=== PATIENT | female | born 1985 | race Two or more races ===

== ENCOUNTER 2020-05-09 02:13 | Inpatient (IN) | payer MEDICAID ==
[~2020-05-09] VITALS: Ht 165.1 cm; Wt 90.3 kg
[2020-05-09] MEDS ORDERED: ONDANSETRON HCL 4MG/2ML INJ IV STA (03:02)
[2020-05-09] MEDS ORDERED: FAMOTIDINE 20MG/2ML VIAL IV STA (03:02)
[2020-05-09] MEDS ORDERED: SODIUM CHLORIDE 0.9% 1,000 ML IV ONE (03:15)
[2020-05-09 03:31] LABS: BASOPHILS % 0.4 % (0.0-2.0); EOSINOPHILS % 1.4 % (0.0-5.0); HEMATOCRIT. 42.2 % (36.0-48.0); HEMOGLOBIN. 13.2 g/dL (12.0-16.0); LYMPHOCYTES % 25.8 % (20.0-50.0); MEAN CORPUSCULAR HEMOGLOBIN 26.1 pg (28.0-32.0); MEAN CORPUSCULAR VOLUME 83.4 fL (81.0-99.0); MEAN PLATELET VOLUME 7.8 fl (7.4-10.4); MONOCYTES % 4.9 % (2.0-8.0); NEUTROPHILS % 67.5 % (40.0-76.0); PLATELET 299 x1000/uL (130-400); RED BLOOD CELL COUNT 5.06 mill/uL (4.2-5.4); RED CELL DISTRIBUTION WIDTH 15.6 % (11.6-14.6)
[2020-05-09 03:37] LABS: CHLORIDE 112 mEq/L (98-107)
[2020-05-09] MEDS: KETOROLAC 15MG/ML VIAL IV ONE ×2 (03:39→03:58)
[2020-05-09 03:41] LABS: HCG SCREEN NEGATIVE
[2020-05-09] MEDS: HYDROMORPHONE HCL/PF 2MG/ML CPJ IV PRN ×3 (06:10→18:39)
[2020-05-09] MEDS: ONDANSETRON HCL 4MG/2ML INJ IV PRN ×3 (06:10→20:05)
[2020-05-09] MEDS: CLONIDINE 0.1MG TABLET PO PRN ×2 (06:10→13:37)
[2020-05-09] MEDS ORDERED: KETOROLAC 15MG/ML VIAL IV PRN (09:00)
[2020-05-09] MEDS ORDERED: PREG200C PO (09:04)
[2020-05-09] MEDS ORDERED: QUET200T PO (09:04)
[2020-05-09] MEDS ORDERED: LORA-250 PO (09:04)
[2020-05-09] MEDS: AMLODIPINE 10MG TABLET PO SCH (09:15)
[2020-05-09 10:15] VITALS: BP 157/75
[2020-05-09] MEDS: METOCLOPRAMIDE HCL 10MG/2ML VIAL IV SCH ×3 (11:06→23:21)
[2020-05-09 12:00] VITALS: BP 170/80
[2020-05-09] MEDS ORDERED: HYDRALAZINE HCL 100MG TABLET PO ONE (14:00)
[2020-05-09 14:19] LABS: CLARITY URINE CLOUDY (CLEAR); COLOR URINE YELLOW (YELLOW); KETONES URINE TRACE (NEGATIVE); LEUKOCYTE ESTERASE URINE NEGATIVE (NEGATIVE); NITRITE URINE NEGATIVE (NEGATIVE); OCCULT BLOOD URINE 1+ (NEGATIVE); PH URINE 5.5 (4.5-8.0); PROTEIN URINE 4+ (NEGATIVE); SPECIFIC GRAVITY URINE 1.038 (1.005-1.030)
[2020-05-09] MEDS ORDERED: DIPHENHYDRAMINE 50MG/ML VIAL IV PRN (14:30)
[2020-05-09] MEDS ORDERED: DEXTROSE 50% WATER 50ML SYRINGE IV PRN (14:30)
[2020-05-09] MEDS: HYDRALAZINE HCL 100MG TABLET PO SCH ×2 (14:32→21:35)
[2020-05-09] MEDS ORDERED: DIPHENHYDRAMINE 25MG CAPSULE PO PRN (14:45)
[2020-05-09 14:50] LABS: *AMPHETAMINES SCREEN URINE NEGATIVE (NEGATIVE)
[2020-05-09 14:52] LABS: *BARBITURATES SCREEN URINE NEGATIVE (NEGATIVE); *BENZODIAZEPINES SCREEN URINE NEGATIVE (NEGATIVE); *COCAINE SCREEN URINE NEGATIVE (NEGATIVE); METHADONE URINE SCREEN NEGATIVE (NEGATIVE)
[2020-05-09 14:53] LABS: PHENCYCLIDINE URINE SCREEN NEGATIVE (NEGATIVE)
[2020-05-09 14:55] LABS: OPIATES URINE SCREEN PRESUMTIVE POSITIVE (NEGATIVE)
[2020-05-09 14:56] LABS: CANNABINOID URINE SCREEN PRESUMTIVE POSITIVE (NEGATIVE)
[2020-05-09] MEDS: BLOOD SUGAR DIAGNOSTIC STRIP TEST SCH ×2 (16:59→21:36)
[2020-05-09] MEDS: HYDROCODONE/ACETAMINOPHEN 5/325MG TABLET PO PRN (17:15)
[2020-05-09] MEDS: INSULIN LISPRO 100 UNITS/ML SUBCUT SCH ×2 (17:20→21:00)
[2020-05-09 20:00] VITALS: BP 169/95
[2020-05-09] MEDS ORDERED: FAMOTIDINE 20MG TABLET PO SCH (21:00)
[2020-05-09] MEDS ORDERED: QUETIAPINE FUMARATE 50MG TABLET PO SCH (21:00)
[2020-05-09] MEDS: SODIUM CHLORIDE 0.45% 1,000 ML IV SCH (23:21)
[2020-05-10] VITALS: BP 118/61
[2020-05-10] MEDS: ONDANSETRON HCL 4MG/2ML INJ IV PRN ×3 (01:57→16:36)
[2020-05-10] MEDS: HYDROMORPHONE HCL/PF 2MG/ML CPJ IV PRN ×3 (01:58→16:36)
[2020-05-10 04:00] VITALS: BP 167/90
[2020-05-10] MEDS: METOCLOPRAMIDE HCL 10MG/2ML VIAL IV SCH ×3 (05:04→18:14)
[2020-05-10] MEDS: HYDRALAZINE HCL 100MG TABLET PO SCH ×3 (05:04→14:13)
[2020-05-10] MEDS: DIATR MEGLU/DIATRIZOATE SOLN 30ML PO NR ×2 (05:05→09:33)
[2020-05-10] MEDS: INSULIN LISPRO 100 UNITS/ML SUBCUT SCH ×3 (06:06→18:13)
[2020-05-10] MEDS: BLOOD SUGAR DIAGNOSTIC STRIP TEST SCH ×3 (06:06→17:10)
[2020-05-10 06:30] LABS: BASOPHILS % 0.5 % (0.0-2.0); EOSINOPHILS % 0.3 % (0.0-5.0); HEMATOCRIT. 36.8 % (36.0-48.0); HEMOGLOBIN. 11.9 g/dL (12.0-16.0); LYMPHOCYTES % 21.2 % (20.0-50.0); MEAN CORPUSCULAR HEMOGLOBIN 26.7 pg (28.0-32.0); MEAN CORPUSCULAR VOLUME 82.9 fL (81.0-99.0); MONOCYTES % 4.1 % (2.0-8.0); NEUTROPHILS % 73.9 % (40.0-76.0); PLATELET 278 x1000/uL (130-400); RED BLOOD CELL COUNT 4.44 mill/uL (4.2-5.4); RED CELL DISTRIBUTION WIDTH 15.4 % (11.6-14.6)
[2020-05-10 08:00] VITALS: BP 176/97
[2020-05-10 08:00] LABS: CLARITY URINE CLEAR (CLEAR); COLOR URINE YELLOW (YELLOW); KETONES URINE TRACE (NEGATIVE); LEUKOCYTE ESTERASE URINE NEGATIVE (NEGATIVE); NITRITE URINE NEGATIVE (NEGATIVE); OCCULT BLOOD URINE NEGATIVE (NEGATIVE); PH URINE 5.5 (4.5-8.0); PROTEIN URINE 4+ (NEGATIVE); SPECIFIC GRAVITY URINE 1.022 (1.005-1.030); UROBILINOGEN URINE 0.2 E.U./dL (0.2-1.0)
[2020-05-10] MEDS: AMLODIPINE 10MG TABLET PO SCH (08:08)
[2020-05-10] MEDS: HYDROCODONE/ACETAMINOPHEN 5/325MG TABLET PO PRN (09:54)
[2020-05-10] MEDS ORDERED: PROCHLORPERAZINE 10MG/2ML VIAL IV PRN (10:45)
[2020-05-10 12:00] VITALS: BP 161/92
[2020-05-10] MEDS ORDERED: CLONIDINE 0.1MG TABLET PO SCH (14:00)
[2020-05-10] MEDS ORDERED: LIDOCAINE HCL 1% 20ML VIAL (Pyxis) INJ ONE (15:12)
[2020-05-10 16:00] VITALS: BP 145/88
[2020-05-10] MEDS: SODIUM CHLORIDE 0.45% 1,000 ML IV SCH (16:37)
[2020-05-10 18:19] VITALS: BP 145/88
[2020-05-10] MEDS ORDERED: SENNOSIDES/DOCUSATE SOD 8.6/50MG TABLET PO SCH (21:00)
[2020-05-11] MEDS ORDERED: DOCUSATE SODIUM 250MG CAPSULE PO SCH (09:00)
[2020-05-11] MEDS ORDERED: DOCUSATE SODIUM 100MG CAPSULE PO SCH (09:00)
[2020-05-11] MEDS ORDERED: PANTOPRAZOLE SODIUM 40 MG/VIAL IV SCH (09:00)
== END 2020-05-10 20:20 | disposition home or self-care (01) | DRG 48 ==
LOC: ER 02:13 → 8WST 04:58 → ENRESERV 07:10
PROVIDERS: ADMIT Internal Medicine; ATTEND Internal Medicine
PROC: 02HV33Z Insertion of Infusion Device into Superior Vena Cava, Percutaneous Approach (ICD-10-PCS; principal; 2020-05-10)
PROC: B518ZZA Fluoroscopy of Superior Vena Cava, Guidance (ICD-10-PCS; 2020-05-10)
PROC: B548ZZA Ultrasonography of Superior Vena Cava, Guidance (ICD-10-PCS; 2020-05-10)
DX: E11.43 Type 2 diabetes mellitus with diabetic autonomic (poly)neuropathy (principal); K31.84 Gastroparesis; N17.0 Acute kidney failure with tubular necrosis; E43 Unspecified severe protein-calorie malnutrition; I16.0 Hypertensive urgency; F12.90 Cannabis use, unspecified, uncomplicated; E66.9 Obesity, unspecified; K76.0 Fatty (change of) liver, not elsewhere classified; E11.36 Type 2 diabetes mellitus with diabetic cataract; N92.6 Irregular menstruation, unspecified; E87.8 Other disorders of electrolyte and fluid balance, not elsewhere classified; G89.29 Other chronic pain; Z20.822 Contact with and (suspected) exposure to COVID-19; Z68.33 Body mass index [BMI] 33.0-33.9, adult; Z88.5 Allergy status to narcotic agent; Z90.49 Acquired absence of other specified parts of digestive tract; Z89.022 Acquired absence of left finger(s); Z89.421 Acquired absence of other right toe(s); Z71.3 Dietary counseling and surveillance; Z98.891 History of uterine scar from previous surgery
CPT/HCPCS: 36415; 36573; 74176; 76830; 76856; 80048; 80053; 80305; 81003; 82962; 83036; 84703; 85025; 87426; 99285; C1725; C1893; J1170; J1815; J1885; J2405; J2765; J3490; J7030; Q9963

== ENCOUNTER 2020-05-17 23:57 | Emergency (ER) | payer MEDICAID ==
[~2020-05-17] VITALS: Ht 152.4 cm; Wt 90.0 kg
[~2020-05-17 23:57] MED LIST: LORA-250 PO; PREG200C PO; QUET200T PO
[2020-05-18] MEDS ORDERED: FAMOTIDINE 20MG/2ML VIAL IV STA (00:27)
[2020-05-18] MEDS ORDERED: METOCLOPRAMIDE HCL 10MG/2ML VIAL IV STA (00:27)
[2020-05-18] MEDS ORDERED: KETOROLAC 30MG/ML VIAL IV STA (00:27)
[2020-05-18] MEDS ORDERED: MAGNESIUM/ALUMINUM HYDROXIDE/SIMETHICONE 30ML UDC PO STA (00:27)
[2020-05-18 00:55] LABS: BASOPHILS % 0.4 % (0.0-2.0); EOSINOPHILS % 0.9 % (0.0-5.0); HEMATOCRIT. 35.5 % (36.0-48.0); HEMOGLOBIN. 11.4 g/dL (12.0-16.0); LYMPHOCYTES % 22.7 % (20.0-50.0); MEAN CORPUSCULAR HEMOGLOBIN 26.9 pg (28.0-32.0); MEAN CORPUSCULAR VOLUME 83.4 fL (81.0-99.0); MEAN PLATELET VOLUME 7.8 fl (7.4-10.4); MONOCYTES % 5.3 % (2.0-8.0); NEUTROPHILS % 70.7 % (40.0-76.0); PLATELET 294 x1000/uL (130-400); RED BLOOD CELL COUNT 4.26 mill/uL (4.2-5.4)
[2020-05-18 00:57] LABS: CHLORIDE 114 mEq/L (98-107)
[2020-05-18 01:00] LABS: CLARITY URINE CLOUDY (CLEAR); COLOR URINE YELLOW (YELLOW); KETONES URINE NEGATIVE (NEGATIVE); LEUKOCYTE ESTERASE URINE NEGATIVE (NEGATIVE); NITRITE URINE NEGATIVE (NEGATIVE); OCCULT BLOOD URINE NEGATIVE (NEGATIVE); PH URINE 5.5 (4.5-8.0); PROTEIN URINE 3+ (NEGATIVE); UROBILINOGEN URINE 0.2 E.U./dL (0.2-1.0)
[2020-05-18] MEDS ORDERED: DIPHENHYDRAMINE 25MG CAPSULE PO ONE (01:45)
[2020-05-18] MEDS ORDERED: MORPHINE SULFATE 4 MG/ML CPJ (NOT FOR IM USE) IV ONE (01:45)
[2020-05-18 02:27] VITALS: BP 154/79
== END 2020-05-18 02:41 | disposition home or self-care (01) ==
LOC: ER 23:57
DX: E11.43 Type 2 diabetes mellitus with diabetic autonomic (poly)neuropathy (principal); K31.84 Gastroparesis; I10 Essential (primary) hypertension
CPT/HCPCS: 36415; 80053; 81003; 82010; 82962; 83690; 85025; 93005; 96374; 96375; 99285; J1885; J2270; J2765; J3490; Q0163

== ENCOUNTER 2020-06-30 02:01 | Emergency (ER) | payer MEDICAID ==
[~2020-06-30] VITALS: Ht 167.6 cm; Wt 90.0 kg
[2020-06-30] MEDS ORDERED: ONDANSETRON HCL 4MG/2ML INJ IV STA ×2 (04:26→06:39)
[2020-06-30] MEDS ORDERED: SODIUM CHLORIDE 0.9% 1,000 ML IV ONE (04:30)
[2020-06-30 05:31] LABS: CHLORIDE 112 mEq/L (98-107)
[2020-06-30 05:35] LABS: ETHANOL BLOOD < 10 mg/dL
[2020-06-30 05:37] LABS: BASOPHILS % 0.7 % (0.0-2.0); EOSINOPHILS % 0.4 % (0.0-5.0); HEMATOCRIT. 40.1 % (36.0-48.0); HEMOGLOBIN. 13.1 g/dL (12.0-16.0); MEAN CORPUSCULAR HEMOGLOBIN 26.5 pg (28.0-32.0); MEAN CORPUSCULAR VOLUME 81.2 fL (81.0-99.0); MEAN PLATELET VOLUME 8.3 fl (7.4-10.4); MONOCYTES % 4.1 % (2.0-8.0); NEUTROPHILS % 67.8 % (40.0-76.0); PLATELET 358 x1000/uL (130-400); RED BLOOD CELL COUNT 4.93 mill/uL (4.2-5.4); RED CELL DISTRIBUTION WIDTH 15.5 % (11.6-14.6)
[2020-06-30] MEDS ORDERED: KETOROLAC 30MG/ML VIAL IV STA (06:39)
[2020-06-30 06:41] LABS: CLARITY URINE CLOUDY (CLEAR); COLOR URINE YELLOW (YELLOW); KETONES URINE NEGATIVE (NEGATIVE); LEUKOCYTE ESTERASE URINE NEGATIVE (NEGATIVE); NITRITE URINE NEGATIVE (NEGATIVE); OCCULT BLOOD URINE 1+ (NEGATIVE); PROTEIN URINE 4+ (NEGATIVE); SPECIFIC GRAVITY URINE 1.028 (1.005-1.030); UROBILINOGEN URINE 0.2 E.U./dL (0.2-1.0)
[2020-06-30 06:53] LABS: *BENZODIAZEPINES SCREEN URINE NEGATIVE (NEGATIVE); *COCAINE SCREEN URINE NEGATIVE (NEGATIVE); METHADONE URINE SCREEN NEGATIVE (NEGATIVE); OPIATES URINE SCREEN NEGATIVE (NEGATIVE)
[2020-06-30 06:54] LABS: *AMPHETAMINES SCREEN URINE NEGATIVE (NEGATIVE); *BARBITURATES SCREEN URINE NEGATIVE (NEGATIVE); PHENCYCLIDINE URINE SCREEN NEGATIVE (NEGATIVE)
[2020-06-30 06:55] LABS: CANNABINOID URINE SCREEN PRESUMTIVE POSITIVE (NEGATIVE)
[2020-06-30] MEDS ORDERED: KETOROLAC 15MG/ML VIAL IV ONE (08:00)
[2020-06-30] MEDS ORDERED: CEFTRIAXONE 1 G PREMIX 50 ML IV ONE (08:00)
[2020-06-30] MEDS ORDERED: AMLODIPINE 5MG TABLET PO ONE (08:00)
[2020-06-30] MEDS ORDERED: IBUP-2028 MT (09:26)
[2020-06-30] MEDS ORDERED: NITR-87 MT (09:26)
[2020-06-30 10:40] VITALS: BP 160/80
== END 2020-06-30 10:48 | disposition home or self-care (01) ==
LOC: ER 02:36
DX: N39.0 Urinary tract infection, site not specified (principal); I10 Essential (primary) hypertension; E11.9 Type 2 diabetes mellitus without complications; J44.9 Chronic obstructive pulmonary disease, unspecified; H54.8 Legal blindness, as defined in USA; Z87.19 Personal history of other diseases of the digestive system; Z88.5 Allergy status to narcotic agent; Z79.899 Other long term (current) drug therapy
CPT/HCPCS: 36415; 74176; 80053; 80305; 80320; 81003; 81025; 83690; 85025; 93005; 96361; 96374; 96375; 96376; 99285; J0696; J1885; J2405; J7030; G0480

== ENCOUNTER 2020-07-02 14:52 | Emergency (ER) | payer MEDICAID ==
[~2020-07-02] VITALS: Ht 157.5 cm; Wt 86.0 kg
[~2020-07-02 14:52] MED LIST changes: +IBUP-2028 MT; +NITR-87 MT
[2020-07-02] MEDS ORDERED: ONDANSETRON HCL 4MG/2ML INJ IV ONE (15:15)
[2020-07-02] MEDS ORDERED: KETOROLAC 15MG/ML VIAL IV ONE (15:15)
[2020-07-02] MEDS ORDERED: SODIUM CHLORIDE 0.9% 1,000 ML IV ONE (15:15)
[2020-07-02 15:31] LABS: BASOPHILS % 0.4 % (0.0-2.0); EOSINOPHILS % 0.1 % (0.0-5.0); HEMATOCRIT. 35.8 % (36.0-48.0); HEMOGLOBIN. 12.2 g/dL (12.0-16.0); LYMPHOCYTES % 18.8 % (20.0-50.0); MEAN CORPUSCULAR VOLUME 82.2 fL (81.0-99.0); MEAN PLATELET VOLUME 7.8 fl (7.4-10.4); MONOCYTES % 4.7 % (2.0-8.0); PLATELET 330 x1000/uL (130-400); RED BLOOD CELL COUNT 4.36 mill/uL (4.2-5.4); RED CELL DISTRIBUTION WIDTH 15.1 % (11.6-14.6)
[2020-07-02 15:36] LABS: CHLORIDE 113 mEq/L (98-107)
[2020-07-02 15:38] LABS: CLARITY URINE CLOUDY (CLEAR); COLOR URINE YELLOW (YELLOW); KETONES URINE 1+ (NEGATIVE); LEUKOCYTE ESTERASE URINE NEGATIVE (NEGATIVE); NITRITE URINE NEGATIVE (NEGATIVE); OCCULT BLOOD URINE 2+ (NEGATIVE); PH URINE 5.5 (4.5-8.0); PROTEIN URINE 4+ (NEGATIVE); SPECIFIC GRAVITY URINE 1.034 (1.005-1.030); UROBILINOGEN URINE 0.2 E.U./dL (0.2-1.0)
[2020-07-02] MEDS ORDERED: DIPH50CA4 MT (16:29)
[2020-07-02] MEDS ORDERED: CLONIDINE 0.1MG TABLET PO ONE (17:30)
[2020-07-02] MEDS ORDERED: ONDANSETRON 4MG ODT PO ONE (17:45)
[2020-07-02 18:33] VITALS: BP 195/103
== END 2020-07-02 18:46 | disposition home or self-care (01) ==
LOC: ER 14:52
DX: R11.2 Nausea with vomiting, unspecified (principal); M79.18 Myalgia, other site; R03.0 Elevated blood-pressure reading, without diagnosis of hypertension; R80.9 Proteinuria, unspecified; N39.0 Urinary tract infection, site not specified
CPT/HCPCS: 36415; 80053; 81003; 81025; 85025; 87086; 96361; 96374; 96375; 99284; J1885; J2405; J7030; Z7610

== ENCOUNTER 2020-07-31 18:34 | Inpatient (IN) | payer MEDICAID ==
[~2020-07-31] VITALS: Ht 154.9 cm; Wt 71.9 kg
[~2020-07-31 18:34] MED LIST changes: +DIPH50CA4 MT
[2020-07-31] MEDS ORDERED: SODIUM CHLORIDE 0.9% 1,000 ML IV ONE (19:00)
[2020-07-31 22:33] LABS: BASOPHILS % 0.6 % (0.0-2.0); EOSINOPHILS % 1.1 % (0.0-5.0); HEMOGLOBIN. 10.4 g/dL (12.0-16.0); LYMPHOCYTES % 25.4 % (20.0-50.0); MEAN CORPUSCULAR VOLUME 83.4 fL (81.0-99.0); MEAN PLATELET VOLUME 8.7 fl (7.4-10.4); MONOCYTES % 4.4 % (2.0-8.0); NEUTROPHILS % 68.5 % (40.0-76.0); PLATELET 254 x1000/uL (130-400); RED BLOOD CELL COUNT 3.72 mill/uL (4.2-5.4); RED CELL DISTRIBUTION WIDTH 15.7 % (11.6-14.6)
[2020-07-31 22:40] LABS: CHLORIDE 113 mEq/L (98-107)
[2020-07-31 22:44] LABS: ETHANOL BLOOD < 10 mg/dL
[2020-07-31 22:49] LABS: CREATINE KINASE 164 IU/L (26-192)
[2020-08-01 01:11] LABS: CLARITY URINE CLEAR (CLEAR); COLOR URINE YELLOW (YELLOW); KETONES URINE NEGATIVE (NEGATIVE); LEUKOCYTE ESTERASE URINE NEGATIVE (NEGATIVE); NITRITE URINE NEGATIVE (NEGATIVE); OCCULT BLOOD URINE 1+ (NEGATIVE); PH URINE 5.5 (4.5-8.0); PROTEIN URINE 3+ (NEGATIVE); SPECIFIC GRAVITY URINE 1.016 (1.005-1.030); UROBILINOGEN URINE 0.2 E.U./dL (0.2-1.0)
[2020-08-01 01:31] LABS: *AMPHETAMINES SCREEN URINE NEGATIVE (NEGATIVE); *BARBITURATES SCREEN URINE NEGATIVE (NEGATIVE); *BENZODIAZEPINES SCREEN URINE NEGATIVE (NEGATIVE); *COCAINE SCREEN URINE NEGATIVE (NEGATIVE); METHADONE URINE SCREEN NEGATIVE (NEGATIVE); PHENCYCLIDINE URINE SCREEN NEGATIVE (NEGATIVE)
[2020-08-01 01:33] LABS: CANNABINOID URINE SCREEN PRESUMTIVE POSITIVE (NEGATIVE); OPIATES URINE SCREEN PRESUMTIVE POSITIVE (NEGATIVE)
[2020-08-01] MEDS ORDERED: MORPHINE SULFATE 2 MG/ML CPJ (NOT FOR IM USE) IV PRN (02:15)
[2020-08-01] MEDS ORDERED: CLONIDINE 0.2MG TABLET PO PRN (02:15)
[2020-08-01 08:00] VITALS: BP 187/99
[2020-08-01 09:10] VITALS: BP 187/99
[2020-08-01 10:29] VITALS: BP 187/99
[2020-08-01] MEDS ORDERED: ONDANSETRON HCL 4MG/2ML INJ IV PRN (11:30)
[2020-08-01] MEDS ORDERED: KETOROLAC 30MG/ML VIAL IV PRN (11:30)
[2020-08-01] MEDS ORDERED: ACETAMINOPHEN 325MG TABLET PO PRN (11:30)
[2020-08-01] MEDS ORDERED: KETOROLAC 15MG/ML VIAL IV PRN (11:45)
[2020-08-01 12:00] VITALS: BP 134/66
[2020-08-01] MEDS ORDERED: AMLODIPINE 10MG TABLET PO SCH (12:00)
[2020-08-01] MEDS ORDERED: HYDROCODONE/ACETAMINOPHEN 10/325MG TABLET PO PRN (12:00)
[2020-08-01 12:16] VITALS: BP 187/99
[2020-08-01] MEDS ORDERED: HYDRALAZINE HCL 100MG TABLET PO SCH ×2 (13:00→22:00)
== END 2020-08-01 17:55 | disposition left against medical advice (07) | DRG 52 ==
LOC: ER 18:34 → 8WST 08-01 00:43 → EDBEDREQ 08-01 00:48 → EDBEDREQTM 08-01 00:48 → EDBEDREQDT 08-01 00:48 → ENRESERV 08-01 07:12
PROVIDERS: ADMIT Internal Medicine; ATTEND Internal Medicine
DX: G93.41 Metabolic encephalopathy (principal); N17.0 Acute kidney failure with tubular necrosis; E43 Unspecified severe protein-calorie malnutrition; E87.8 Other disorders of electrolyte and fluid balance, not elsewhere classified; R56.9 Unspecified convulsions; E87.5 Hyperkalemia; E11.9 Type 2 diabetes mellitus without complications; D64.9 Anemia, unspecified; G82.20 Paraplegia, unspecified; F12.90 Cannabis use, unspecified, uncomplicated; F41.9 Anxiety disorder, unspecified; I10 Essential (primary) hypertension; Z53.29 Procedure and treatment not carried out because of patient's decision for other reasons; J44.9 Chronic obstructive pulmonary disease, unspecified; Z88.5 Allergy status to narcotic agent; Z88.8 Allergy status to other drugs, medicaments and biological substances; Z79.1 Long term (current) use of non-steroidal anti-inflammatories (NSAID); Z79.899 Other long term (current) drug therapy; Z82.49 Family history of ischemic heart disease and other diseases of the circulatory system; H54.7 Unspecified visual loss; I16.0 Hypertensive urgency
CPT/HCPCS: 36415; 71045; 80053; 80305; 80320; 81003; 82140; 82550; 82962; 83605; 85025; 93005; 99285; J2270; J7030; G0480

== ENCOUNTER 2020-09-27 16:28 | Emergency (ER) | payer MEDICAID ==
[~2020-09-27] VITALS: Ht 160 cm; Wt 70.0 kg
[2020-09-27 16:31] VITALS: BP 145/87
== END 2020-09-27 20:00 | disposition left against medical advice (07) ==
LOC: ER 19:42
DX: M54.5 Low back pain (principal); Z53.21 Procedure and treatment not carried out due to patient leaving prior to being seen by health care provider; I49.9 Cardiac arrhythmia, unspecified
CPT/HCPCS: 93005

== ENCOUNTER 2021-02-17 03:22 | Emergency (ER) | payer MEDICAID ==
[~2021-02-17] VITALS: Ht 167.6 cm; Wt 73.0 kg
[2021-02-17] MEDS ORDERED: MAGNESIUM/ALUMINUM HYDROXIDE/SIMETHICONE 30ML UDC PO STA (03:52)
[2021-02-17] MEDS ORDERED: ONDANSETRON 4MG ODT PO STA (03:52)
[2021-02-17] MEDS ORDERED: VISCOUS LIDOCAINE 2% 15 ML UDC PO STA (03:52)
[2021-02-17] MEDS ORDERED: FAMOTIDINE 20MG/2ML VIAL IV STA (03:52)
[2021-02-17] MEDS ORDERED: METOCLOPRAMIDE HCL 10MG/2ML VIAL IV STA (03:52)
[2021-02-17] MEDS ORDERED: KETOROLAC 15MG/ML VIAL IV ONE (04:00)
[2021-02-17 05:17] LABS: CHLORIDE 113 mEq/L (98-107)
[2021-02-17 05:22] LABS: ETHANOL BLOOD < 10 mg/dL
[2021-02-17 05:32] LABS: HEMATOCRIT. 35.6 % (36.0-48.0); HEMOGLOBIN. 11.6 g/dL (12.0-16.0); MEAN CORPUSCULAR HEMOGLOBIN 26.4 pg (28.0-32.0); MEAN CORPUSCULAR VOLUME 80.7 fL (81.0-99.0); RED BLOOD CELL COUNT 4.41 mill/uL (4.2-5.4); RED CELL DISTRIBUTION WIDTH 15.1 % (11.6-14.6)
[2021-02-17 07:41] LABS: PLATELET ESTIMATE NORMAL
[2021-02-17 07:42] LABS: MEAN PLATELET VOLUME 8.4 fl (7.4-10.4); PLATELET 359 x1000/uL (130-400)
[2021-02-17] MEDS ORDERED: MAGNESIUM/ALUMINUM HYDROXIDE/SIMETHICONE 30ML UDC PO NR (10:00)
[2021-02-17] MEDS ORDERED: FAMOTIDINE 20MG/2ML VIAL IV NR (10:00)
[2021-02-17] MEDS ORDERED: KETOROLAC 15MG/ML VIAL IV NR (10:00)
[2021-02-17] MEDS ORDERED: ONDANSETRON 4MG ODT PO NR (10:00)
[2021-02-17] MEDS ORDERED: METOCLOPRAMIDE HCL 10MG/2ML VIAL IV NR (10:00)
[2021-02-17] MEDS ORDERED: DIATR MEGLU/DIATRIZOATE SOLN 30ML ONE (10:01)
[2021-02-17] MEDS ORDERED: VISCOUS LIDOCAINE 2% 15 ML UDC PO NR (10:30)
[2021-02-17 10:45] LABS: CLARITY URINE CLOUDY (CLEAR); COLOR URINE YELLOW (YELLOW); KETONES URINE NEGATIVE (NEGATIVE); LEUKOCYTE ESTERASE URINE NEGATIVE (NEGATIVE); NITRITE URINE NEGATIVE (NEGATIVE); OCCULT BLOOD URINE 2+ (NEGATIVE); PROTEIN URINE 4+ (NEGATIVE); SPECIFIC GRAVITY URINE 1.021 (1.005-1.030); UROBILINOGEN URINE 0.2 E.U./dL (0.2-1.0)
[2021-02-17 11:01] LABS: *AMPHETAMINES SCREEN URINE NEGATIVE (NEGATIVE); *BARBITURATES SCREEN URINE NEGATIVE (NEGATIVE); *BENZODIAZEPINES SCREEN URINE NEGATIVE (NEGATIVE); *COCAINE SCREEN URINE NEGATIVE (NEGATIVE)
[2021-02-17 11:02] LABS: METHADONE URINE SCREEN NEGATIVE (NEGATIVE); OPIATES URINE SCREEN NEGATIVE (NEGATIVE); PHENCYCLIDINE URINE SCREEN NEGATIVE (NEGATIVE)
[2021-02-17 11:03] LABS: CANNABINOID URINE SCREEN PRESUMTIVE POSITIVE (NEGATIVE)
[2021-02-17 14:36] VITALS: BP 166/80
== END 2021-02-17 14:41 | disposition home or self-care (01) ==
LOC: ER 03:22
DX: R11.2 Nausea with vomiting, unspecified (principal); I10 Essential (primary) hypertension; Z20.822 Contact with and (suspected) exposure to COVID-19
CPT/HCPCS: 36415; 74176; 80053; 80305; 80320; 81003; 83690; 85025; 87426; 93005; 99285; J1885; J2765; J3490; Q0162; Q9963; G0480

== ENCOUNTER 2022-12-26 20:30 | Emergency (ER) | payer MEDICAID ==
[~2022-12-26] VITALS: Ht 165.1 cm; Wt 96.0 kg
[~2022-12-26 20:30] MED LIST changes: +APIX2.5T PO; -DIPH50CA4 MT; +DIPH50CA41 MT; +GABA-534 PO; +KEPP500 PO; +LISI20TA31 PO; +PREG150C PO
[2022-12-26 20:39] VITALS: O2SAT 98
[2022-12-26] MEDS ORDERED: GABAPENTIN 400MG CAPSULE PO ONE (21:15)
[2022-12-26 21:28] LABS: BASOPHILS % 0.5 % (0.0-2.0); EOSINOPHILS % 2.1 % (0.0-5.0); HEMATOCRIT. 27.9 % (36.0-48.0); HEMOGLOBIN. 9.1 g/dL (12.0-16.0); LYMPHOCYTES % 24.1 % (20.0-50.0); MEAN CORPUSCULAR HGB CONC 32.7 g/dL (31.0-37.0); MEAN CORPUSCULAR VOLUME 91.7 fL (81.0-99.0); MEAN PLATELET VOLUME 7.1 fl (7.4-10.4); MONOCYTES % 7.4 % (2.0-8.0); NEUTROPHILS % 65.9 % (40.0-76.0); PLATELET 327 x1000/uL (130-400); RED BLOOD CELL COUNT 3.04 mill/uL (4.2-5.4); RED CELL DISTRIBUTION WIDTH 14.9 % (11.6-14.6); WHITE BLOOD COUNT 5.3 x1000/uL (4.5-11.0)
[2022-12-26 21:34] LABS: PROTHROMBIN TIME 10.3 sec (9.6-11.0)
[2022-12-26 21:46] LABS: ALANINE AMINOTRANSFERASE 15 IU/L (10-49); ALBUMIN 3.8 g/dL (3.2-4.8); ASPARTATE AMINOTRANSFERASE 21 IU/L (<34); BILIRUBIN TOTAL 0.3 mg/dL (0.1-1.0); CALCIUM 8.4 mg/dL (8.7-10.4); CARBON DIOXIDE 29 mEq/L (21-32); CHLORIDE 98 mEq/L (98-107); CREATININE 4.4 mg/dL (0.6-1.0); GLUCOSE 174 mg/dL (70-105); POTASSIUM 3.5 mEq/L (3.5-5.1); PROTEIN TOTAL 7.7 g/dL (6.0-8.3); SODIUM 137 mEq/L (136-145); UREA NITROGEN BLOOD 11 mg/dL (9-23)
[2022-12-27 01:35] VITALS: BP 118/68; PULSE 89; RESP 19
== END 2022-12-27 01:41 | disposition home or self-care (01) ==
LOC: ER 20:30
DX: I12.0 Hypertensive chronic kidney disease with stage 5 chronic kidney disease or end stage renal disease (principal); N18.9 Chronic kidney disease, unspecified; G62.9 Polyneuropathy, unspecified; R42 Dizziness and giddiness; F41.9 Anxiety disorder, unspecified; E11.9 Type 2 diabetes mellitus without complications; Z88.5 Allergy status to narcotic agent
CPT/HCPCS: 36415; 71045; 80053; 83735; 84100; 85025; 93005; 99285

== ENCOUNTER 2023-01-16 01:12 | Emergency (ER) | payer MEDICAID ==
[~2023-01-16] VITALS: Ht 167.6 cm; Wt 110.0 kg
[2023-01-16] MEDS ORDERED: ONDANSETRON HCL 4MG/2ML INJ IV STA (01:18)
[2023-01-16] MEDS ORDERED: MAGNESIUM/ALUMINUM HYDROXIDE/SIMETHICONE 30ML UDC PO STA (01:18)
[2023-01-16] MEDS ORDERED: PANTOPRAZOLE SODIUM 40 MG/VIAL IV ONE (01:30)
[2023-01-16] MEDS ORDERED: SODIUM CHLORIDE 0.9% 1,000 ML IV ONE (01:30)
[2023-01-16 01:39] VITALS: O2SAT 92
[2023-01-16 03:25] LABS: BASOPHILS % 0.4 % (0.0-2.0); EOSINOPHILS % 0.2 % (0.0-5.0); HEMATOCRIT. 30.4 % (36.0-48.0); HEMOGLOBIN. 9.9 g/dL (12.0-16.0); LYMPHOCYTES % 11.5 % (20.0-50.0); MEAN CORPUSCULAR HEMOGLOBIN 29.3 pg (28.0-32.0); MEAN CORPUSCULAR HGB CONC 32.6 g/dL (31.0-37.0); MONOCYTES % 11.9 % (2.0-8.0); PLATELET 245 x1000/uL (130-400); RED BLOOD CELL COUNT 3.37 mill/uL (4.2-5.4); RED CELL DISTRIBUTION WIDTH 15.3 % (11.6-14.6); WHITE BLOOD COUNT 4.5 x1000/uL (4.5-11.0)
[2023-01-16 03:33] LABS: PROTHROMBIN TIME 10.5 sec (9.6-11.0)
[2023-01-16 03:40] LABS: ALANINE AMINOTRANSFERASE 14 IU/L (10-49); ALBUMIN 3.9 g/dL (3.2-4.8); ASPARTATE AMINOTRANSFERASE 15 IU/L (<34); BILIRUBIN TOTAL 0.2 mg/dL (0.1-1.0); CALCIUM 8.5 mg/dL (8.7-10.4); CARBON DIOXIDE 24 mEq/L (21-32); CHLORIDE 101 mEq/L (98-107); GLUCOSE 90 mg/dL (70-105); POTASSIUM 4.6 mEq/L (3.5-5.1); PROTEIN TOTAL 8.2 g/dL (6.0-8.3); SODIUM 136 mEq/L (136-145); UREA NITROGEN BLOOD 23 mg/dL (9-23)
[2023-01-16 03:43] LABS: HCG SCREEN NEGATIVE
[2023-01-16 05:34] LABS: ETHANOL BLOOD < 10 mg/dL (<10)
[2023-01-16 05:35] LABS: CREATININE 7.7 mg/dL (0.6-1.0)
[2023-01-16] MEDS ORDERED: AMOXICILLIN/POTASSIUM CLAVULANATE 875/125MG TAB PO NR (06:00)
[2023-01-16] MEDS ORDERED: ACET-2708 MT (06:01)
[2023-01-16] MEDS ORDERED: PROT40 MT (06:01)
[2023-01-16] MEDS ORDERED: ONDA4TAB50 MT (06:01)
[2023-01-16] MEDS ORDERED: AMOX1TAB16 MT (06:01)
[2023-01-16] MEDS ORDERED: ONDANSETRON HCL 4MG/2ML INJ IV NR (08:15)
[2023-01-16] MEDS ORDERED: MAGNESIUM/ALUMINUM HYDROXIDE/SIMETHICONE 30ML UDC PO NR (08:15)
[2023-01-16] MEDS ORDERED: PANTOPRAZOLE SODIUM 40 MG/VIAL IV NR (08:15)
[2023-01-16] MEDS ORDERED: HYDROCODONE/ACETAMINOPHEN 5/325MG TABLET PO ONE (09:15)
[2023-01-16 11:13] VITALS: BP 178/85; PULSE 91; RESP 15; TEMP 98.8
== END 2023-01-16 11:14 | disposition home or self-care (01) ==
LOC: ER 01:12
DX: K52.9 Noninfective gastroenteritis and colitis, unspecified (principal); I12.0 Hypertensive chronic kidney disease with stage 5 chronic kidney disease or end stage renal disease; E11.22 Type 2 diabetes mellitus with diabetic chronic kidney disease; N18.6 End stage renal disease; Z00.00 Encounter for general adult medical examination without abnormal findings; Z86.59 Personal history of other mental and behavioral disorders
CPT/HCPCS: 80053; 80320; 84703; 83605; 83690; 85025; 85610; 36415; 73610; 74176; 29515; 96361; 96365; 99285; J2405; C9113; J7030; Z7610 ×5; G0480